=== PATIENT | female | born 2000 | race Caucasian/White ===

== ENCOUNTER 2020-09-14 21:24 | Observation (INO) ==
[2020-09-14] MEDS ORDERED: Lidocaine/EPI 1:100k 1% 20 ML VIAL INFILT ONE (22:01)
[2020-09-14 22:11] LABS: Bilirubin,Urine Negative (Negative); Blood,Urine Small (Negative); Clarity,Urine Clear (Clear); Color,Urine Light-Yellow (Yellow); Glucose,Urine (UA) Normal (Normal); Ketones,Urine Negative (Negative); Leukocyte Esterase,Urine Trace (Negative); Mucus,Urine Few per lpf (None-Few); Nitrite,Urine Negative (Negative); Protein,Urine Trace mg/dL (Neg-Trace); Specific Gravity,Urine 1.015 (1.010-1.025); Squamous Epithelial Cell,Urine Few per hpf (None-Few); Urobilinogen,Urine Normal (Normal); WBC,Urine 0-3 per hpf (0-3)
[2020-09-14 22:21] LABS: Amphetamine Screen,Urine Negative ng/mL (Cutoff=1000); Barbiturate Screen,Urine Negative ng/mL (Cutoff=200); Benzodiazepines Screen,Urine Negative ng/mL (Cutoff=200); Cannabinoid Screen,Urine Negative ng/mL (Cutoff = 50); Cocaine Screen,Urine Negative ng/mL (Cutoff= 300); Opiate Screen,Urine Negative ng/mL (Cutoff=300); Phencyclidine Screen,Urine Negative ng/mL (Cutoff=25)
[2020-09-14 22:29] LABS: Basophils # 0.1 K/mcL (0.0-0.2); Basophils % 0.7 %; Eosinophils # 0.1 K/mcL (0.0-0.6); Eosinophils % 1.3 %; Hematocrit 37.2 % (35.3-44.9); Hemoglobin 12.1 g/dL (11.5-15.4); Immature Granulocytes % 0.8 % (0-4); Lymphocytes # 2.9 K/mcL (0.6-4.6); Mean Corpuscular HGB Conc 32.5 g/dL (31.6-35.5); Mean Platelet Volume 9.4 fL (9.4-12.4); Monocytes # 0.7 K/mcL (0.0-1.3); Monocytes % 6.9 %; Neutrophils # 6.5 K/mcL (1.6-8.9); Platelet Count 329 K/mcL (140-400); Red Blood Count 4.48 M/mcL (3.82-4.97); Red Cell Distribution Width 12.4 % (11.5-14.5); Segmented Neutrophils % 62.3 %; White Blood Count 10.4 K/mcL (4.3-11.1)
[2020-09-14 22:46] LABS: Estimated Average Glucose 97 mg/dl
[2020-09-14 22:48] LABS: Reactive Lymphocytes Present (Not Present)
[2020-09-14 23:07] LABS: Acetaminophen < 10 mcg/mL (10-20); BUN/Creatinine Ratio 10 (6-26); Blood Urea Nitrogen 7 mg/dL (6-20); Carbon Dioxide 23 mEq/L (23-29); Chloride 105 mEq/L (98-107); Ethanol < 10 mg/dL (Less than 10); Glucose 100 mg/dL (70-105); Osmolality,Calculated 280 (280-300); Potassium 4.2 mEq/L (3.5-5.1); Salicylate < 2.5 mg/dL (15.0-30.0); Sodium 136 mEq/L (136-145); Thyroid Stimulating Hormone 2.438 mcIU/mL (0.340-5.600); eGFR For African Americans > 60; eGFR For Non-African Americans > 60
[2020-09-15] MEDS ORDERED: traZODone 50 MG TABLET PO PRN (00:51)
[2020-09-15] MEDS ORDERED: haloperidoL 5 MG TABLET PO PRN (00:51)
[2020-09-15] MEDS ORDERED: Haloperidol Lactate 5 MG/ML VIAL IM PRN (00:51)
[2020-09-15] MEDS ORDERED: *HR* LORazepam 2 MG/ML VIAL IM PRN (00:51)
[2020-09-15] MEDS ORDERED: *HR* LORazepam 1 MG TABLET PO PRN (00:51)
[2020-09-15] MEDS ORDERED: hydrOXYzine pamoate 25 MG CAPSULE PO PRN (00:51)
[2020-09-15] MEDS ORDERED: Acetaminophen 325 MG TABLET PO PRN (00:57)
[2020-09-15] MEDS: BuPROPion XL (24 HR) 150 MG TABLET PO SCH (12:36)
[2020-09-15] MEDS ORDERED: Mag Hydrox/Al Hydrox/Simeth 30 ML UDC PO PRN (13:20)
[2020-09-15] MEDS ORDERED: MOM Conc 10 ML UD.LIQ PO PRN (13:20)
[2020-09-16] MEDS: BuPROPion XL (24 HR) 150 MG TABLET PO SCH (09:03)
[2020-09-16 09:13] VITALS: BP 116/75
== END 2020-09-16 12:55 | disposition home or self-care (01) ==
LOC: EMEROOARM 21:24 → INTOOBSV 09-15 00:50 → 1ANU 09-15 00:50
PROVIDERS: ADMIT Psychiatry & Neurology Psychiatry; ATTEND Psychiatry & Neurology Psychiatry

== ENCOUNTER 2021-06-07 03:54 | Inpatient (IN) ==
[2021-06-07] MEDS ORDERED: Lidocaine 1% 20 ML MDV INFILT PRN (04:11)
[2021-06-07] MEDS ORDERED: Naloxone 0.4 MG/ML INJ IVP PRN (04:11)
[2021-06-07] MEDS ORDERED: Metoclopramide 10 MG/2 ML VIAL IVP PRN (04:11)
[2021-06-07] MEDS ORDERED: *HR* Nalbuphine 10 MG/ML AMPUL IV PRN (04:11)
[2021-06-07] MEDS ORDERED: Azithromycin 500 MG in 0.9 % Sodium Chloride 250 ML IVPB PRN (04:11)
[2021-06-07] MEDS ORDERED: Famotidine 20 MG/2 ML VIAL IVP PRN (04:11)
[2021-06-07] MEDS ORDERED: Oxytocin 20 units/ LR 1000 mL 20 UNIT/1,000 ML BAG IVC SCH ×2 (04:15→14:22)
[2021-06-07 05:17] LABS: Amphetamine Screen,Urine Negative ng/mL (Cutoff=1000); Barbiturate Screen,Urine Negative ng/mL (Cutoff=200); Benzodiazepines Screen,Urine Negative ng/mL (Cutoff=200); Cannabinoid Screen,Urine Negative ng/mL (Cutoff = 50); Cocaine Screen,Urine Negative ng/mL (Cutoff= 300); Opiate Screen,Urine Negative ng/mL (Cutoff=300); Phencyclidine Screen,Urine Negative ng/mL (Cutoff=25)
[2021-06-07] MEDS ORDERED: Lidocaine -MPF 2% 5 ML VIAL ONE (05:28)
[2021-06-07 05:48] LABS: Influenza A PCR Negative (Negative); Influenza B PCR Negative (Negative); Resp. Syncytial Virus PCR Negative (Negative)
[2021-06-07 05:52] LABS: SARS-CoV-2 by PCR (In House) Negative (Negative)
[2021-06-07] MEDS ORDERED: EPHEDrine 50 MG/ML VIAL IVP PRN (06:22)
[2021-06-07] MEDS ORDERED: Epidural Premix (fent/bupiv) 110 ML EP SCH (06:30)
[2021-06-07 06:36] LABS: Basophils # 0.1 K/mcL (0.0-0.2); Basophils % 0.7 %; Eosinophils # 0.1 K/mcL (0.0-0.6); Eosinophils % 0.8 %; Hematocrit 35.7 % (35.3-44.9); Hemoglobin 10.8 g/dL (11.5-15.4); Immature Granulocytes % 3.7 % (0-4); Lymphocytes # 2.1 K/mcL (0.6-4.6); Lymphocytes % 16.1 %; Mean Corpuscular HGB Conc 30.3 g/dL (31.6-35.5); Mean Corpuscular Hemoglobin 24.9 pg (28.0-33.3); Mean Corpuscular Volume 82.3 fL (83.0-100.0); Mean Platelet Volume 10.1 fL (9.4-12.4); Monocytes # 0.9 K/mcL (0.0-1.3); Monocytes % 7.1 %; Neutrophils # 9.4 K/mcL (1.6-8.9); Nucleated Red Blood Cells 0.5 /100 WBC (0); Platelet Count 298 K/mcL (140-400); Red Blood Count 4.34 M/mcL (3.82-4.97); Red Cell Distribution Width 20.8 % (11.5-14.5); Segmented Neutrophils % 71.6 %; White Blood Count 13.1 K/mcL (4.3-11.1)
[2021-06-07] MEDS: Ringers Solution, Lactated 1,000 ML IVC SCH ×2 (06:55→10:12)
[2021-06-07] MEDS ORDERED: *HR* FentaNYL (PF) 100 MCG/2 ML VIAL ONE (09:51)
[2021-06-07] MEDS ORDERED: Ropivacaine/PF 0.2% 20 ML VIAL ONE (09:51)
[2021-06-07] MEDS ORDERED: Ondansetron ODT 4 MG TAB.RAPDIS SL PRN (14:22)
[2021-06-07] MEDS ORDERED: Lanolin 7 G OINT...G. TP PRN (14:22)
[2021-06-07] MEDS ORDERED: Benzocaine/Menthol 56 GM AEROSOL SPRAY TP PRN (14:22)
[2021-06-07] MEDS ORDERED: Oxytocin 20 units/ LR 1000 mL 20 UNIT/1,000 ML BAG IVC ONE (14:22)
[2021-06-07] MEDS ORDERED: Rho Immune Globulin 1,500 UNIT SYRINGE IM PRN (14:22)
[2021-06-07] MEDS ORDERED: Measles/Mumps/Rubella Vacc 0.5 ML VIAL SQ PRN (14:22)
[2021-06-07] MEDS ORDERED: Ibuprofen 600 MG TABLET PO SCH (18:00)
[2021-06-07] MEDS: Acetaminophen 325 MG TABLET PO SCH (21:22)
[2021-06-08] MEDS: Acetaminophen 325 MG TABLET PO SCH ×2 (03:59→06:19)
[2021-06-08 04:25] LABS: Basophils # 0.1 K/mcL (0.0-0.2); Basophils % 0.5 %; Eosinophils # 0.1 K/mcL (0.0-0.6); Eosinophils % 0.9 %; Hematocrit 28.9 % (35.3-44.9); Lymphocytes # 2.1 K/mcL (0.6-4.6); Lymphocytes % 17.9 %; Mean Corpuscular HGB Conc 29.8 g/dL (31.6-35.5); Mean Corpuscular Hemoglobin 24.2 pg (28.0-33.3); Mean Corpuscular Volume 81.2 fL (83.0-100.0); Monocytes # 0.8 K/mcL (0.0-1.3); Monocytes % 6.6 %; Neutrophils # 8.5 K/mcL (1.6-8.9); Nucleated Red Blood Cells 0.3 /100 WBC (0); Platelet Count 260 K/mcL (140-400); Red Blood Count 3.56 M/mcL (3.82-4.97); Red Cell Distribution Width 20.9 % (11.5-14.5); Segmented Neutrophils % 71.1 %
[2021-06-08 04:26] LABS: Hemoglobin 8.6 g/dL (11.5-15.4)
[2021-06-08 06:33] VITALS: BP 119/69; PULSE 98; TEMP 97.9; O2SAT 100
[2021-06-08] MEDS ORDERED: BuPROPion XL (24 HR) 150 MG TABLET PO SCH (09:00)
[2021-06-08] MEDS ORDERED: Prenatal Vit/FA 1 EACH TABLET PO SCH (09:00)
== END 2021-06-08 13:30 | disposition home or self-care (01) | DRG 560 ==
LOC: 1NENULAB 03:54 → 1NENUOBS 13:51
PROVIDERS: ADMIT Student in an Organized Health Care Education/Training Program; ATTEND Student in an Organized Health Care Education/Training Program